=== PATIENT | male | born 2000 | race Caucasian/White ===

== ENCOUNTER 2018-01-24 22:09 | Emergency (ER) | payer BC, SELFPAY ==
[2018-01-24 22:10] VITALS: BP 152/85; PULSE 102; RESP 24; TEMP 36.4; O2SAT 100; BMI 25.4
--- NOTE | 2018-01-24 22:30 | EKG12_ITS ---
Test Reason : SUBSTANCE ABUSE Blood Pressure : / mmHG Vent. Rate : 070 BPM Atrial Rate : 070 BPM P-R Int : 146 ms QRS Dur : 098 ms QT Int : 372 ms P-R-T Axes : 072 081 036 degrees QTc Int : 401 ms Normal sinus rhythm Normal ECG Confirmed by VERONICA HINSON, MICAH ([id number]), editorial cartoonist LEI ALVARENGA ([id number] on 01/26/2018 1:32:05 PM Referred By: MR Confirmed By:MICAH MARTIN MD
--- NOTE | 2018-01-24 23:06 | ED.DCSUM_ITS ---
- ER Visit Summary Date of Service: 01/24/18 Chief Complaint: Laced marijuana History of Present Illness: The patient is a 17 M presenting due to complaints of potential laced marijuana. Patient ingested a marijuana cookie at approximately 8:05 PM. Patient reports that he had a gradual onset of palpitations after that. Denies any chest pain shortness of breath lightheadedness visual changes numbness or weakness. Denies any hallucinations associated with this. Patient is otherwise healthy and takes no medications. Physical Examination: Vital signs notable for mild tachycardia 102. Well- nourished male no acute distress. Injected conjunctiva are noted. Neck was supple. Heart was tachycardic and regular no murmurs normal S1 and S2. Lungs clear. Abdomen soft nontender. Extremities nontender nonedematous. Skin normal color no rash. Patient was alert and oriented x4 and exhibits no evidence of lateralizing neurological deficits. Test Results: EKG shows a sinus rhythm at [address] segments normal T waves normal VA and QTc intervals no evidence of WPW or Brugada morphology. Emergency Department Course and Treatment: Patient presented due to concern for laced marijuana. He had mild tachycardia and EKG was found to be normal. I do not believe that there is any indication for blood work or drug testing at this point. Patient was reassured, and was recommended to stop using drugs. Disposition: Discharge Impression: 1. Marijuana use This note was generated with Quickoffice dictation software. It may contain incorrect words, spelling, and punctuation that were not noted in review of the chart prior to signing ED Disposition - Plan for ED Patient: Disposition: Home or Assisted Living Chief Complaint: Substance Abuse Diagnosis: Marijuana use Instructions: ED Marijuana Abuse Referrals: [facility] Doctor,Out of [Primary Care Provider] -
[2018-01-24 23:20] VITALS: BP 118/78; PULSE 97; RESP 16; O2SAT 99
== END 2018-01-24 23:21 | disposition home or self-care (01) ==
PROVIDERS: Emergency Provider Emergency Medicine
DX: F12.90 Cannabis use, unspecified, uncomplicated (principal); J45.909 Unspecified asthma, uncomplicated; R00.2 Palpitations
CPT/HCPCS: 93005; 99284